=== PATIENT | male | born 1965 | race Caucasian/White ===

== ENCOUNTER 2024-05-26 08:04 | Outpatient (CLI) | payer BC, SELFPAY ==
--- NOTE | ~2024-05-26 | MR_ITS ---
EXAMINATION: MR cervical spine wo con DATE: 05/26/2024 08:46 INDICATION: Radiculopathy, cervical region. TECHNIQUE: Magnetic resonance imaging (MRI) of the cervical spine was performed without intravenous c ontrast. COMPARISON: None FINDINGS: Alignment is normal. There are changes of anterior fusion procedures at C5-C6 and C6-C7 wit h interbody devices. Vertebral body heights are normal. There is mildly decreased disc height at C4-C 5. There is increased T2-weighted signal intensity in the spinal cord on the right at C5 and C6-C7, c onsistent with myelomalacia. The following disc levels are specifically discussed: C2-C3: There is a central protrusion. There is no uncovertebral joint osteoarthritis. There is mild b ilateral facet joint osteoarthritis. There is no neural foraminal stenosis. There is mild central can al stenosis. C3-C4: There is a central extrusion. There is mild bilateral uncovertebral joint osteoarthritis. Ther e is moderate right and mild left facet joint osteoarthritis. There is mild bilateral neural foramina l stenosis. There is mild central canal stenosis. C4-C5: There is a central protrusion. There is no uncovertebral joint osteoarthritis. There is severe bilateral facet joint osteoarthritis. There is mild left neural foraminal stenosis. There is no cent ral canal stenosis. C5-C6: There is severe bilateral uncovertebral joint hypertrophy. There is mild right and moderate le ft facet joint osteoarthritis. There is mild right and moderate left neural foraminal stenosis. There is mild central canal stenosis with ventral indentation of the spinal cord. C6-C7: There is severe bilateral uncovertebral joint hypertrophy. There is moderate bilateral facet j oint osteoarthritis. There is mild right and moderate left neural foraminal stenosis. There is mild c entral canal stenosis with ventral indentation of the spinal cord. C7-T1: There is a central protrusion. There is no uncovertebral joint osteoarthritis. There is severe bilateral facet joint osteoarthritis. There is mild bilateral neural foraminal stenosis. There is no central canal stenosis. IMPRESSION: 1. Myelomalacia at C5 and C6-C7. 2. Mild cervical spondylosis. 3. Anterior fusion procedures at C5-C6 and C6-C7. Reviewed, dictated and finalized at location A. T OPERATIONS CLERK
--- NOTE | ~2024-05-26 | MR_ITS ---
EXAMINATION: MR thoracic spine wo con DATE: 05/26/2024 08:53 INDICATION: Radiculopathy, thoracic region. TECHNIQUE: Magnetic resonance imaging (MRI) of the thoracic spine was performed without intravenous c ontrast. COMPARISON: None FINDINGS: There is 6 degrees dextrocurvature of thoracic spine. There is mild chronic anterior wedgin g of T8-T12 vertebral bodies. There are Schmorl's nodes at multiple levels. There is mildly decreased disc height at T6-T7, T7-T8, T9-T10, T10-T11, and T11-T12. At T6-T7, there is a central extrusion wi th mild central canal stenosis. There is multilevel facet joint osteoarthritis, severe at multiple le vels. On the right, there is mild neural foraminal stenosis at T3-T4, T6-T7, T7-T8, and T8-T9. On the left, there is mild neural foraminal stenosis at T6-T7, T7-T8, T8-T9, and T9-T10. The thoracic spina l cord signal intensity is normal. IMPRESSION: 1. Mild thoracic spondylosis. Reviewed, dictated and finalized at location A. ER TEACHER
== END 2024-05-26 08:05 | disposition home or self-care (01) ==
PROVIDERS: Visit Provider Anesthesiology
DX: M47.814 Spondylosis without myelopathy or radiculopathy, thoracic region (principal); G95.89 Other specified diseases of spinal cord; M47.812 Spondylosis without myelopathy or radiculopathy, cervical region; Z98.1 Arthrodesis status
CPT/HCPCS: 72141; 72146